=== PATIENT | female | born 1965 | race Caucasian/White ===

== ENCOUNTER 2016-04-09 08:55 | Emergency (ER) | payer BC ==
[~2016-04-09 08:55] MED LIST: MBXC PO; VENL150C PO
[2016-04-09 09:01] VITALS: TEMP 36.8; Ht 160 cm
[2016-04-09] MEDS ORDERED: KETOROLAC TROMETHAMINE 60 MG/2 ML VIAL IM STA (09:09)
[2016-04-09] MEDS ORDERED: HYDROmorphone INJ 1 MG/ML SYR IM STA (09:09)
[2016-04-09] MEDS ORDERED: PROMETHAZINE HCL INJ 25 MG/ML 1 ML VIAL IM STA (09:09)
--- NOTE | 2016-04-09 09:22 | EMERGENCY ROOM VISIT NOTE ---
History Report prepared by Timoteo: Rita Horn Under the Supervision of: Dr. Kendell Loera D.O. First contact with patient: 09:05 Chief Complaint: HEADACHE Stated Complaint: BAD HEADACHE, CANNOT STAND History of Present Illness The patient is a 50 year old female who presents to the Emergency Room with complaints of headache. The patient has a history of migraine headaches and states that this feels very similar to her previous migraine headaches. She states the intensity is much worse however. The headache began acutely this morning at approximate 530 in the a.m. The patient took her usual migraine medication without help. She states that she has photosensitivity but the pain is also worsened with any movement. She states she feels generalized weakness but has no unilateral weakness. She has neck pain but no neck stiffness. She does not know she is a fever. The patient was able to ambulate without difficulty. The patient states she has not seen a headache specialist for these headaches. Her also states that she had a head injury approximate one year ago but has not had any type of workup for the injury since it happened. The patient also admits to nausea and vomiting. She denies having any abdominal pain chest pain or shortness of breath. The patient has not seen her family doctor for this headache. The patient states it is very severe at this time. Source of History: patient Onset: Position: head Timing: worsening Associated Symptoms: + nausea, + neck pain, + vomiting, No SOB, No abdominal pain, No chest pain Note: Associated Symptoms: Photosensitivity Review of Systems See HPI for pertinent positives & negatives. A total of 10 systems reviewed and were otherwise negative. Past Medical & Surgical Medical Problems: (1) Anxiety (2) Bronchitis (3) Laryngitis (4) Migraine (5) Migraine Unspecified W/O Intractable Migraine Surgical Problems: (1) H/O: hysterectomy (2) Tubal Ligation Status Family History FH: cancer FH: heart disease Social History Smoking Status: Never Smoker Alcohol Use: occasionally Marital Status: Housing Status: lives with significant other Occupation Status: employed Current/Historical Medications No Active Prescriptions or Reported Meds Allergies Coded Allergies: Aminoglycosides (Verified Allergy, Unknown, Irritation of skin, 04/09/16) THIS IS EAR DROP FORM Physical Exam Vital Signs Date Time Temp Pulse Resp B/P Pulse Ox O2 Delivery O2 Flow Rate FiO2 04/09/16 11:45 62 16 139/87 98 Room Air 04/09/16 09:01 36.8 75 20 162/102 100 Room Air Physical Exam GENERAL: Patient is awake and alert. She is very anxious and uncomfortable appearing. EYES: The conjunctivae are clear. The pupils are round and reactive. EARS, NOSE, MOUTH AND THROAT: The nose is without any evidence of any deformity. Mucous membranes are moist tongue is midline NECK: The neck is nontender and supple. RESPIRATORY: Normal respiratory effort is noted there is no evidence of wheezing rhonchi or rales CARDIOVASCULAR: Regular rate and rhythm noted there no murmurs rubs or gallops normal S1 normal S2 GASTROINTESTINAL: The abdomen is soft. Bowel sounds are present in all quadrants. Abdomen is nontender MUSCULOSKELETAL/EXTREMITIES: There is no evidence of gross deformity full range of motion is noted in the hips and shoulders SKIN: There is no obvious evidence of any rash. There are no petechiae, pallor or cyanosis noted. NEUROLOGIC: Patient is awake alert and oriented x3 strength is symmetric patellar reflexes are 2+ bilaterally Medical Decision & Procedures ER Provider Diagnostic Interpretation: CT results as stated below per my review and radiologist interpretation. HEAD CT NONCONTRAST CT DOSE: 823.94 mGycm HISTORY: Headache. Mental status change. severer OVALLES TECHNIQUE: Multiaxial CT images of the head were performed without the use of intravenous contrast. Comparison: 06/02/2013 Findings: The paranasal sinuses and mastoid air cells are clear. The calvarium and skull base are intact. The ventricles and sulci are within normal limits. There is no mass, hematoma, midline shift, or acute infarct. Impression: No acute intracranial abnormality. Electronically signed by: Michel Sow M.D. 04/09/2016 10:07 AM Dictated Date/Time: 04/09/2016 10:07 AM Medications Administered Medications (Trade) Dose Ordered Sig/[place] Route Start Time Stop Time Status Last Admin Dose Admin Promethazine HCl (Phenergan Inj) 25 mg NOW STAT IM 04/09/16 09:09 04/09/16 09:11 DC 04/09/16 09:09 25 MG Hydromorphone HCl (Dilaudid Inj) 1 mg NOW STAT IM 04/09/16 09:09 04/09/16 09:11 DC 04/09/16 09:44 1 MG Ketorolac Tromethamine (Toradol Inj) 60 mg NOW STAT IM 04/09/16 09:09 04/09/16 09:11 DC 04/09/16 09:44 60 MG Ondansetron HCl (ZOFRAN ODT 4MG Home Pack) 1 homepack UD ONCE PO 04/09/16 11:00 04/09/16 11:01 DC 04/09/16 11:00 1 HOMEPACK ED Course 0905: The patient was evaluated in room A9B. A complete history and physical examination were performed. 09: Ordered Toradol Inj 60 mg IM, Dilaudid Inj 1 mg IM, Phenergan Inj 25 mg IM. 1004: I went to reevaluate the patient but she was over at CT. The patient's notes that the patient is still in a significant amount of pain. 1014: I reevaluated the patient and she was not feeling much better. I informed her of her normal CT scan report. 1056: I reevaluated the patient and she is doing well. I discussed the exam findings with her and I discussed the treatment plan. She verbalized complete understanding and agreement. She is ready to go home. 1100: Ordered Zofran Odt 4 mg homepack 1 homepack PO. Medical Decision Prior records/ancillary studies reviewed. Additional history obtained from the patient's significant other. Triage Nursing notes reviewed. The patient's history was concerning for headache. Differential diagnosis: Etiologies such as migraine headache, meningitis, sinusitis, CO exposure, ICH, SAH, infection, tumor, headache, sinus thrombosis, arterial dissection, as well as others were entertained. The patient is a 50-year-old female who presented to the emergency department for an evaluation of headache. The patient had a very significant migraine headache which began earlier this morning. She states it is consistent with her usual migraine headache however the intensity appeared to be worse than usual. The patient did not have any meningismus. She did not have fever or any focal neurologic deficit. She was treated with pain medication in the emergency department and reevaluated multiple times. She was also treated with antiemetics. Because of the change in her migraine intensity I did order a CT the head. This did not reveal any acute abnormality. The patient has only had symptoms for less than 6 hours. I discussed the patient's laboratory and radiographic studies with her. She was not 100% pain-free but I offered more pain medication and she did not wish to have any further treatment at this time. She was encouraged to rest and avoid any strenuous activity. She was also encouraged to continue all medications as prescribed. She was also encouraged to follow-up with her family doctor this week for reevaluation and possible further workup or even referral to a headache specialist but return to the emergency department immediately if symptoms change worsen or the need arises. Impression Primary Impression: Migraine headache Scribe Attestation The scribe's documentation has been prepared under my direction and personally reviewed by me in its entirety. I confirm that the note above accurately reflects all work, treatment, procedures, and medical decision making performed by me. Departure Information Dispostion Home / Self-Care Prescriptions No Active Prescriptions or Reported Meds Referrals Michel Neal M.D. (PCP) Forms HOME CARE DOCUMENTATION FORM, IMPORTANT VISIT INFORMATION, Work Instructions Patient Instructions Headaches Migraine and Tension, My [facility] Additional Instructions Continue all medications as prescribed. Rest and avoid any strenuous activity. Follow-up with your family doctor soon as possible. You may require a referral to a headache specialist. Return to the emergency department immediately if symptoms change worsen or the need arises.
--- NOTE | 2016-04-09 10:09 | DIAGNOSTIC IMAGING REPORT ---
HEAD CT NONCONTRAST CT DOSE: 823.94 mGycm HISTORY: Headache. Mental status change. severer OVALLES TECHNIQUE: Multiaxial CT images of the head were performed without the use of intravenous contrast. Comparison: 06/02/2013 Findings: The paranasal sinuses and mastoid air cells are clear. The calvarium and skull base are intact. The ventricles and sulci are within normal limits. There is no mass, hematoma, midline shift, or acute infarct. Impression: No acute intracranial abnormality. Electronically signed by: Michel Sow M.D. 04/09/2016 10:07 AM Dictated Date/Time: 04/09/2016 10:07 AM
[2016-04-09] MEDS ORDERED: ONDANSETRON HOME PACK 4MG OD TAB PO ONE (11:00)
[2016-04-09 11:45] VITALS: BP 139/87; PULSE 62; O2SAT 98
== END 2016-04-09 11:50 | disposition home or self-care (01) ==
LOC: C.EDB 08:56 → C.EDA 11:50
DX: G43.909 Migraine, unspecified, not intractable, without status migrainosus (principal); Z90.710 Acquired absence of both cervix and uterus; Z98.51 Tubal ligation status

== ENCOUNTER → 2016-11-29 | Outpatient (CLI) | payer BC ==
[~2016-11-29] MED LIST changes: -MBXC PO; +SINCALIDE INJ 1.7 MCG in SODIUM CHLORIDE 0.9% 100ML 100 ML IV ONE; -VENL150C PO
--- NOTE | 2016-11-29 09:58 | DIAGNOSTIC IMAGING REPORT ---
NUCLEAR HEPATOBILIARY SCAN WITH EJECTION FRACTION IMAGING CLINICAL HISTORY: Right upper quadrant abdominal pain. COMPARISON STUDY: Abdominal CT dated 09/28/2010. TECHNIQUE: Dynamic images of the liver and anterior abdomen were obtained every 5 minutes for a total of 60 minutes following the IV administration of 5.2mCi of technetium 99m Choletec. 1.7 mcg of sincalide was then injected with additional images acquired every 5 minutes for 45 minutes to calculate the gallbladder ejection fraction. FINDINGS: The hepatobiliary scan shows prompt and homogeneous hepatic uptake. There is visualized activity within the intra and extrahepatic biliary tree at 10 minutes, and within the gallbladder at 15 minutes. Tracer is present within the small bowel by 70 minutes. On the sincalide imaging, the gallbladder ejection fraction was measured at 4%. IMPRESSION: 1. Unremarkable nuclear hepatobiliary scan. There is no scintigraphic evidence of cholecystitis. 2. The gallbladder ejection fraction measured 40% which is low normal. Electronically signed by: Oscar Maynard M.D. 11/29/2016 9:57 AM Dictated Date/Time: 11/29/2016 9:56 AM
== END | disposition home or self-care (01) ==
LOC: C.NUCL 07:13
PROVIDERS: ATTEND Surgery
DX: R10.11 Right upper quadrant pain (principal)

== ENCOUNTER → 2017-01-31 | Outpatient (CLI) | payer BC ==
--- NOTE | 2017-02-03 07:49 | MAMMOGRAPHY REPORT ---
BILATERAL DIGITAL SCREENING MAMMOGRAM TOMOSYNTHESIS WITH CAD: 01/31/2017 CLINICAL HISTORY: Routine screening. Patient has no complaints. TECHNIQUE: Breast tomosynthesis in addition to standard 2D mammography was performed. Current study was also evaluated with a Computer Aided Detection (CAD) system. COMPARISON: Comparison is made to exams dated: 01/30/2016 mammogram, 02/13/2015 ultrasound, 5 mammogram, 01/26/2015 mammogram, 01/25/2014 mammogram, and 01/20/2013 mammogram - [facility]. BREAST COMPOSITION: The tissue of both breasts is heterogeneously dense, which may obscure small mas ses. FINDINGS: No suspicious masses, calcifications, or areas of architectural distortion are noted in ei ther breast. There has been no significant interval change compared to prior exams. Scattered bilate ral benign-appearing calcifications are not significantly changed. Circumscribed benign appearing ma ss in the right subareolar breast is stable dating back to at least the 2008 exam, and considered ministerio ign given long-term stability. IMPRESSION: ACR BI-RADS CATEGORY 2: BENIGN There is no mammographic evidence of malignancy. A 1 year screening mammogram is recommended. The pa tient will receive written notification of the results. Approximately 10% of breast cancers are not detected with mammography. A negative mammographic report should not delay biopsy if a clinically suggestive mass is present. Yue Ann M.D. /:01/31/2017 14:30:28 Copy Preparer: Alyssa NIXONR, M, [facility] letter sent: Normal 1/2 BI-RADS Code: ACR BI-RADS Category 2: Benign
== END | disposition home or self-care (01) ==
LOC: C.MAMM 08:44
PROVIDERS: ATTEND Family Medicine
DX: Z12.31 Encounter for screening mammogram for malignant neoplasm of breast (principal)